=== PATIENT | female | born 1990 | race Caucasian/White ===

== ENCOUNTER 2020-10-07 04:13 | Emergency (ER) | payer MEDICAID ==
[~2020-10-07] VITALS: Ht 157.5 cm; Wt 109.0 kg
[2020-10-07] MEDS ORDERED: ondansetron/PF 4mg/2ml inj IV ONE (05:05)
[2020-10-07 05:09] LABS: BASOPHILS % (AUTO) 0.4 % (0-1); EOSINOPHILS % (AUTO) 0.1 % (0-6); HEMATOCRIT 41.7 % (35.0-45.0); HEMOGLOBIN 14.2 g/dl (12.0-16.0); LYMPHOCYTES # (AUTO) 2.5 X10'3 (1.1-4.8); LYMPHOCYTES % (AUTO) 20.4 % (21-51); MEAN CORPUSCULAR HEMOGLOBIN 27.5 PG (27.0-31.0); MEAN CORPUSCULAR VOLUME 80.9 FL (78-98); MEAN PLATELET VOLUME 7.4 FL (7.4-10.4); MONOCYTES # (AUTO) 0.6 X10'3 (0-0.9); MONOCYTES % (AUTO) 5.1 % (2-12); NEUTROPHILS # (AUTO) 9.2 X10'3 (1.8-7.7); PLATELET COUNT 398 X10'3 (140-440); RED BLOOD COUNT 5.15 X10'6 (4.20-5.60); RED CELL DISTRIBUTION WIDTH 14.1 % (11.5-14.5); WHITE BLOOD COUNT 12.4 X10'3 (4.5-11.0)
[2020-10-07] MEDS ORDERED: morphine 2 MG/ML inj. syringe IV PRN (05:15)
[2020-10-07] MEDS ORDERED: ketorolac tromethamine 15mg/ml inj. IV ONE (05:15)
[2020-10-07] MEDS ORDERED: LORazepam 2 mg/ml vial IV ONE (05:15)
[2020-10-07 05:17] LABS: ALANINE AMINOTRANSFERASE 37 U/L (12-78); ALBUMIN 4.5 G/DL (3.4-5.0); ALBUMIN/GLOBULIN RATIO 1.1 (1.1-1.5); ALKALINE PHOSPHATASE 82 IU/L (46-116); ANION GAP 13 (8-16); ASPARTATE AMINO TRANSFERASE 19 U/L (10-37); BILIRUBIN,TOTAL 0.9 MG/DL (0.1-1.0); BLOOD UREA NITROGEN 14 MG/DL (7-18); BUN/CREATININE RATIO 15.9 (6.6-38.0); CALCIUM 9.4 MG/DL (8.5-10.1); CHLORIDE 106 MMOL/L (99-107); CREATININE 0.88 MG/DL (0.40-0.90); GLUCOSE 125 MG/DL (70-104); POTASSIUM 3.1 MMOL/L (3.5-5.1); SODIUM 145 MMOL/L (135-145); TOTAL CARBON DIOXIDE 26.3 MMOL/L (24-32); TOTAL PROTEIN 8.5 G/DL (6.4-8.2); eGFR 75 ML/MIN
[2020-10-07 05:25] LABS: ETHANOL < 0.010 GM/DL (0.0-0.010); LIPASE 150 U/L (73-393); TROPONIN I < 0.04 NG/ML (0.0-0.05)
[2020-10-07] MEDS ORDERED: normal saline 1000ML IV soln IVB ONE ×2 (05:25→05:50)
[2020-10-07 06:35] VITALS: BP 157/81
[2020-10-07 06:36] LABS: URINE AMPHETAMINE SCREEN NEGATIVE (Neg); URINE BARBITUATE SCREEN NEGATIVE (Neg); URINE BENZODIAZEPINES SCREEN NEGATIVE (Neg); URINE CANNABINOID SCREEN POSITIVE (Neg); URINE COCAINE SCREEN NEGATIVE (Neg); URINE METHADONE SCREEN NEGATIVE (Neg); URINE OPIATE SCREEN POSITIVE (Neg); URINE PHENCYCLIDINE SCREEN NEGATIVE (Neg)
== END 2020-10-07 06:37 | disposition home or self-care (01) ==
LOC: ER 04:14
DX: R07.89 Other chest pain (principal); R11.2 Nausea with vomiting, unspecified; R10.9 Unspecified abdominal pain; K21.9 Gastro-esophageal reflux disease without esophagitis; F15.10 Other stimulant abuse, uncomplicated; F14.10 Cocaine abuse, uncomplicated; Z79.899 Other long term (current) drug therapy
CPT/HCPCS: 36415; 71045; 80053; 80305; 80320; 83690; 83880; 84484; 85025; 93005; 96374; 96375; 99285; J1885; J2270; J2405